=== PATIENT | female | born 1940 | race Caucasian/White ===

== ENCOUNTER 2017-09-03 15:47 | Outpatient (CLI) | payer MEDICARE, MEDICAID | END 2017-09-03 15:48 | disposition home or self-care (01) | LOC: BICMAMMO 15:47 | PROVIDERS: ATTEND Family Medicine | DX: N63.10 Unspecified lump in the right breast, unspecified quadrant (principal); R92.1 Mammographic calcification found on diagnostic imaging of breast | CPT/HCPCS: 76642; G0204; G0279; 77066 ==